=== PATIENT | female | born 1965 | race Two or more races ===

== ENCOUNTER 2024-01-16 08:48 | Outpatient (RCR) | payer MEDICAID, SELFPAY ==
[2024-01-15 16:10] LABS: Basophils # (Auto) 0.1 Thou/mm3 (0.0-0.2); Basophils % (Auto) 1 % (0-2.5); Eosinophils # (Auto) 0.3 Thou/mm3 (0.0-0.5); Eosinophils % (Auto) 2 % (0-10); Hematocrit 34.2 % (36.0-46.0); Hemoglobin 11.6 g/dL (12.0-16.0); Immature Granulocytes % (Auto) 1 % (0-0); Immature Granulocytes Auto 0.07 Thou/mm3 (0.00-0.00); Lymphocytes # (Auto) 2.3 Thou/mm3 (1.0-4.8); Lymphocytes % (Auto) 20 % (10-50); Mean Corpuscular HGB Conc 33.9 g/dl (31.0-37.0); Mean Corpuscular Hemoglobin 27.1 pg (25.0-35.0); Mean Corpuscular Volume 80 fL (80-100); Monocytes # (Auto) 0.8 Thou/mm3 (0.0-0.8); Monocytes % (Auto) 7 % (0-12); Neutrophils # (Auto) 8.4 Thou/mm3 (1.8-7.7); Neutrophils % (Auto) 70 % (37-80); Nucleated Red Blood Cell % 0 /100 WBC (0); Platelet Count 336 Thou/mm3 (140-440); RDW Standard Deviation 42.2 fL (36.4-46.3); Red Blood Count 4.28 Miln/mm3 (4.00-5.20)
[2024-01-15 16:17] LABS: Alanine Aminotransferase 89 U/L (10-49); Albumin, Serum 4.3 gm/dL (3.4-4.8); Albumin/Globulin Ratio 1.3 (1.2-2.2); Alkaline Phosphatase 201 U/L (46-116); Anion Gap 8 (7-16); Aspartate Amino Transferase 46 U/L (0-34); BUN/Creatinine Ratio 16 Ratio (12-20); Bilirubin,Total 0.3 mg/dL (0.3-1.2); Blood Urea Nitrogen 13 mg/dL (9-23); Calcium 8.2 mg/dL (8.3-10.6); Calcium (Corrected) 8.2 mg/dL (8.5-10.1); Carbon Dioxide 26.2 mMol/L (20.0-31.0); Chloride 104 mMol/L (98-107); Creatinine (Component) 0.8 mg/dL (0.6-1.3); Globulin 3.2 gm/dL (2.3-3.5); Glucose 104 mg/dL (74-106); Osmolality,Calculated 275 (275-295); Potassium 3.6 mMol/L (3.4-5.1); Sodium 138 mMol/L (136-145); Total Protein 7.5 gm/dL (5.7-8.2); eGFR > 60 See Note
[2024-01-15 16:33] LABS: Carcinoembryonic Antigen 2.1 ng/mL (0.0-5.0)
== END 2024-01-25 23:59 | disposition home or self-care (01) ==
LOC: SCTC 08:48
PROVIDERS: PCP Physician Assistant; Referring Provider Physician Assistant; Visit Provider Nurse Practitioner Family
DX: Z08 Encounter for follow-up examination after completed treatment for malignant neoplasm (principal); Z85.41 Personal history of malignant neoplasm of cervix uteri; I25.2 Old myocardial infarction; M85.88 Other specified disorders of bone density and structure, other site; Z90.710 Acquired absence of both cervix and uterus; Z79.83 Long term (current) use of bisphosphonates; I10 Essential (primary) hypertension
CPT/HCPCS: 36591; 80053; 82378; 85025; 86304; 99212; A4216; J1642; G0463

== ENCOUNTER → 2024-03-18 | Outpatient (CLI) | payer MEDICAID, SELFPAY ==
--- NOTE | 2024-03-18 13:15 | XR_ITS ---
Examination: Screening digital mammography, bilateral Computer aided detection 3-D breast Tomosynthesis, bilateral Date and time of exam: March 18, 2024 at 1242 hours Compared to mammograms dating to February 09, 2015 Indication: Screening Technique: Nonmagnified MLO, CC views of the breasts to been obtained, reconstructed from 3-D Tomosynthesis images. R2 computer aided detection program utilized for evaluation of suspicious masses and/or abnormal calcifications. 3-D Tomosynthesis images obtained. Findings: Scattered areas of fibroglandular density Benign calcifications. No interval suspicious masses Impression: BI-RADS category II: Benign Findings. Recommend 1 year follow-up mammogram.
== END | disposition home or self-care (01) ==
LOC: CDIM 12:34
PROVIDERS: PCP Nurse Practitioner Family; Referring Provider Nurse Practitioner Family; Visit Provider Nurse Practitioner Family
DX: Z12.31 Encounter for screening mammogram for malignant neoplasm of breast (principal); R92.323 Mammographic fibroglandular density, bilateral breasts; R92.1 Mammographic calcification found on diagnostic imaging of breast; C53.0 Malignant neoplasm of endocervix
CPT/HCPCS: 77063; 77067

== ENCOUNTER 2024-04-16 09:43 | Outpatient (RCR) | payer MEDICAID, SELFPAY ==
[2024-04-15 16:20] LABS: Basophils # (Auto) 0.1 Thou/mm3 (0.0-0.2); Basophils % (Auto) 1 % (0-2.5); Eosinophils # (Auto) 0.2 Thou/mm3 (0.0-0.5); Eosinophils % (Auto) 3 % (0-10); Hematocrit 34.7 % (36.0-46.0); Hemoglobin 11.8 g/dL (12.0-16.0); Immature Granulocytes % (Auto) 0 % (0-0); Immature Granulocytes Auto 0.01 Thou/mm3 (0.00-0.00); Lymphocytes # (Auto) 2.3 Thou/mm3 (1.0-4.8); Lymphocytes % (Auto) 27 % (10-50); Mean Corpuscular Hemoglobin 27.4 pg (25.0-35.0); Mean Corpuscular Volume 81 fL (80-100); Monocytes # (Auto) 0.7 Thou/mm3 (0.0-0.8); Monocytes % (Auto) 8 % (0-12); Neutrophils # (Auto) 5.4 Thou/mm3 (1.8-7.7); Neutrophils % (Auto) 63 % (37-80); Nucleated Red Blood Cell % 0 /100 WBC (0); Platelet Count 243 Thou/mm3 (140-440); RDW Standard Deviation 41.1 fL (36.4-46.3); White Blood Count 8.7 Thou/mm3 (3.6-11.0)
[2024-04-15 16:57] LABS: Alanine Aminotransferase 35 U/L (10-49); Albumin, Serum 4.2 gm/dL (3.4-4.8); Albumin/Globulin Ratio 1.4 (1.2-2.2); Alkaline Phosphatase 125 U/L (46-116); Anion Gap 11 (7-16); Aspartate Amino Transferase 37 U/L (0-34); BUN/Creatinine Ratio 15 Ratio (12-20); Bilirubin,Total 0.5 mg/dL (0.3-1.2); Blood Urea Nitrogen 12 mg/dL (9-23); Carbon Dioxide 25.5 mMol/L (20.0-31.0); Chloride 104 mMol/L (98-107); Creatinine (Component) 0.8 mg/dL (0.6-1.3); Glucose 132 mg/dL (74-106); Osmolality,Calculated 281 (275-295); Potassium 3.2 mMol/L (3.4-5.1); Sodium 140 mMol/L (136-145); Total Protein 7.2 gm/dL (5.7-8.2); eGFR > 60 See Note
[2024-04-15 17:13] LABS: Carcinoembryonic Antigen 1.2 ng/mL (0.0-5.0)
--- NOTE | 2024-04-16 10:35 | CTCFLWUP_ITS ---
Patient: AMRIK RICHARDSON : 1965 Page 2 of 2 FOLLOW UP NOTE DATE OF SERVICE: 04/16/2024 NAME: AMRIK RICHARDSON ACCOUNT: [id number] : 1965 AGE: 59 INTERVAL HISTORY: Denies per vagina or rectum bleeding. No new complaints. No abdominal distention or weight gain or weight loss. Patient do not follow with gynecology and her last cervical exam was less than a year ago. 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 Biopsy-proven left cervical metastatic disease. Myocardial infarction while on maintenance Avastin. Avastin discontinued. DATE OF DIAGNOSIS: 03/06/2013 STAGE/TNM: IIIB T1b1 N1 M0 TREATMENT HISTORY: Care?Plan Start?Date Cycle Day Intent CISplatin?40?mg/m*2?+?Radiation?Therapy?-?Primary,?Adj,?Rec 04/06/2013 1 7 Curative?(adjuvant) CISPLatin?25mg;?PACLItaxel?175;?AVAStin?7.5 05/22/2017 1 21 Definitive CISPLatin?50mg;?PACLItaxel?175;?AVAStin?15 05/27/2017 1 21 Definitive CISPLatin?50mg;?PACLItaxel?175;?AVAStin?15 08/01/2017 1 21 Definitive Bevacizumab?10?mg/kg?-?Met 11/21/2017 1 28 Maintenance HISTORY OF PRESENT ILLNESS: Ms. Richardson is here at [facility] cancer center. Patient is clinically doing well. Denies any concerns or complaints. Patient is taking Fosamax 35 mg daily and calcium, tolerating them well. Denies body aches, leg cramps. Denies any cough, chest pain, abdominal pain, fever or leg cramps. Denies weight loss. Denies any abnormal lumps/bumps. Denies any fevers or night sweats. She reports good energy levels and appetite. HISTORY: Tarah Richardson is a 59-year-old Mozambican-speaking female with following history. 09/03/2012: Excision of cervix which showed poorly differentiated adenocarcinoma with surgical margins being positive. 03/06/2013: Total abdominal hysterectomy and right and left pelvic wall lymph nodes resection. It was staged as a pT1b1, pN1 disease. 04/06/2013?06/26/2013: Patient received 6300 cGy radiation to the pelvis along with weekly cisplatin started on 04/06/2013 and completed on 06/24/2013. Patient received 7 weekly doses of cisplatin along with radiation 04/09/2013: CT scan of the abdomen and pelvis with and without contrast was obtained which showed a 3 mm noncalcified pulmonary nodule in the right lower lobe. Para-aortic lymph nodes measuring up to 8 mm as well as much larger lymph node masses in the internal iliac chains bilaterally as well as external iliac nodes. 02/19/2017: A repeat PET CT scan showed metastatic lymphadenopathy in the left neck as well as small coalescent lymph nodes in the right neck at the level of C3/4 with mildly increased metabolic activity. No other hypermetabolic areas were evident. 04/23/2017: CT-guided biopsy of the left carotid triangle lymph node?. 05/27/2017?07/11/2017: Patient was treated with 3 cycles of Taxol and cisplatin. 08/01/2017?09/12/2017: Patient received 3 cycles of cisplatin, Taxol and Avastin. 09/27/2017: PET CT scan was done. Is a negative study for any metastatic disease. 10/07/2017: Patient had CT scan of the neck chest abdomen pelvis with IV contrast. CT scan of the neck did not show any significant cervical lymphadenopathy. CT scan of the chest abdomen pelvis with negative studies also. Patient completed 6 cycles of cisplatin Taxol and Avastin regimen so far. Apparently she has complete radiological response. 11/21/2017: Patient was started on single agent Avastin as maintenance therapy 01/26/2019: Patient received a Avastin. 02/06/2019: Patient was diagnosed with non-ST elevated myocardial infarction. Angiogram showed 99% proximal left circumflex artery stenosis. Patient had stent placed with good results. 11/27/2019: PET CT scan?negative for metastatic disease. 12/09/2020: PET CT scan? 12/30/2020: CT scan of the chest with IV contrast? 02/27/2021: Mammograms, bilateral?BI-RADS Category 2: Benign findings. 02/28/2021: Right breast ultrasound?BI-RADS Category 1: Negative study. 07/08/2021: PET/CT scan?no interval metastatic disease. 08/16/2021: CT scan of the chest without contrast? 06/12/2022: CEA: 1.4 and CA-125: 7.0 12/12/2022: CEA 1.3 and CA?125: 13.0, hemoglobin 11.5, MCV 82, platelets 233,000, ANC 5.7 01/28/2023: Mammogram screening Impression: BI-RADS category 1: Negative findings (within normal) Recommend 1 year follow-up mammogram 04/11/2023: CEA 1.5, CA-125 19.0 05/03/2023: PET/CT 08/07/2023: DEXA 09/18/2023: CEA 1.3 CA 125 is 16.0 10/24/2023: PET/CT OTHER MEDICAL HISTORY/CONDITIONS: FAMILY HISTORY: ?Clone Family Hx? SOCIAL HISTORY: SOFTWARE APPLICATION TESTER HISTORY: MEDICATIONS: 1. aspirin - 81 mg 1 tab Daily 2. Citracal + D Slow Release - 600 mg-12.5 mcg (500 unit) 1 tab one tab po twice a day 3. levothyroxine - 100 mcg/mL 1 As directed 4. lisinopril - 40 mg 40 mg Daily 5. omeprazole - 20 mg 1 Capsule Daily?Palabra Meds? Medications Last Reconciled by Bree Garsia MA on 04/16/2024 ALLERGIES: No Known Drug Allergies REVIEW OF SYSTEMS: A complete 14-point review of systems was performed and is negative except as noted in interval history. PHYSICAL EXAMINATION: VITAL SIGNS: Temperature?97.4, B/P?133/82, Oxygen?Saturation?98% Weight?152?lbs PAIN: 0 - No pain ECOG Performance Status: 0 - Asymptomatic and fully active GENERAL APPEARANCE: Appears well, in no apparent distress, appropriately interactive. HEENT: Normocephalic, no temporal wasting, normal conjunctiva, no scleral icterus, normal hearing, lips without lesions, neck normal range of motion. CARDIOVASCULAR: Not assessed. PULMONARY: Normal respiratory effort, no respiratory distress or use of accessory muscles, speaking in full sentences, no tachypnea. EXTREMITIES: No pedal edema or cyanosis. SKIN: Normal skin appearance. NEUROLOGIC: Alert and oriented x4. PSHYCHIATRIC: Appropriate affect, mood normal, behavior normal, intact thought and speech. LABORATORY DATA: I have personally reviewed and interpreted each of the patient?s relevant lab tests, abnormal findings are below: Date 04/15/24 ??GLUCOSE,RANDOM?(mg/dL) 132?H ??BLOOD?UREA?NITROGEN?(mg/dL) 12 ??CREATININE?(mg/dL) 0.80 ??SODIUM?(mmol/L) 140 ??POTASSIUM?(mmol/L) 3.2?L ??CHLORIDE?(mmol/L) 104 ??CrCl?(CandG)?(ml/min) 78.79 ??AST/SGOT?(Unit/L) 37?H ??ALT/SGPT?(Unit/L) 35 ??ALKALINE?PHOSPHATASE?(Unit/L) 125?H ??BILIRUBIN,?TOTAL?(mg/dL) 0.5 ??PROTEIN?TOTAL?(gm/dl) 7.2 ??ALBUMIN,?SERUM?(gm/dl) 4.2 ??GLOBULIN?(gm/dl) 3.0 ??ALBUMIN/GLOBULIN?RATIO 1.4 ??CALCIUM,?SERUM?(mg/dL) 8.0?L ??CALCIUM?SERUM?(CORRECTED)?(mg/dL) 8.0?L ASSESSMENT/PLAN: P 16 positive, 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 Biopsy-proven left cervical metastatic disease. Myocardial infarction while on maintenance Avastin. Avastin discontinued.Ms. Richardson continues to remain asymptomatic without any complaints. PET CT scan done in June no interval metastatic disease as described above. CT scan of the chest without contrast showed stable pulmonary nodules. Patient had myocardial infarction as described above on 02/06/2019 due to 99% proximal left circumflex artery stenosis. Patient had stent placed. Avastin is known to cause blood clots as well as bleeding. Metastatic P 16+ cervical cancer with left-sided malignant cervical lymphadenopathy status post 6 cycles of cisplatin, Last Avastin was given on 01/26/2019. No evidence of recurrence PET CT scan on 10/24/2023 is negative CBC CMP CT scan chest abdomen and pelvis RETURN TO CLINIC: After scan in September BILLING AND COMPLIANCE: I reviewed external records from providers outside my specialty as summarized above. I spent a total of 50 minutes on this patient?s care on the day of their visit excluding time spent related to any billed procedures. This time includes time spent with the patient as well as time spent documenting in the medical record, reviewing patients records and tests, obtaining history, placing orders, communicating with other healthcare professionals, counseling the patient, family or caregiver, and/or care coordination for the diagnoses above. Electronically Signed by: Jassi Boyer MD T: 10:33 AM CC: PCP: Zehra Bolden Referring: Zehra Bolden This document was completed utilizing speech recognition software. Grammatical errors, random word insertions, pronoun errors, and incomplete sentences are an occasional consequence of this system due to software limitations, ambient noise, and hardware issues. Any formal questions or concerns about the content, text or information contained within the body of this dictation should be directly addressed to the provider for clarification.
== END 2024-04-24 23:59 | disposition home or self-care (01) ==
LOC: SCTC 09:43
PROVIDERS: PCP Nurse Practitioner Family; Referring Provider Nurse Practitioner Family; Visit Provider Internal Medicine Hematology & Oncology
DX: Z08 Encounter for follow-up examination after completed treatment for malignant neoplasm (principal); Z85.41 Personal history of malignant neoplasm of cervix uteri; R91.8 Other nonspecific abnormal finding of lung field; I25.2 Old myocardial infarction
CPT/HCPCS: 36591; 80053; 82378; 85025; 86304; 99213; A4216; J1642; G0463

== ENCOUNTER 2024-06-03 10:26 | Outpatient (AMB) | payer MEDICAID, SELFPAY ==
[2024-06-03 10:49] VITALS: BP 144/80; PULSE 84; RESP 16; TEMP 36.2; O2SAT 99; BMI 27.6
--- NOTE | 2024-06-03 10:49 | GYNCLNT_ITS ---
Vital Signs 06/03/24 10:49 Height 1.57 m Height Method Stated Weight 68.521 kg Weight Measurement Method Standing Scale BMI 27.6 BP 144/80 H Blood Pressure Source Automatic Cuff Blood Pressure Location Left Upper Arm Position Sitting Respiration 16 Pulse 84 Pulse Source Monitor Temp 97.2 F Temp Source Oral Pulse Oximetry (%) 99 Oxygen Delivery Method Room Air Allergies/Home Meds Allergies & Medications Allergies No Known Allergies Allergy (Verified 06/03/24 10:51) Medication Reconciliation levothyroxine 125 mcg tablet 62.5 mcg PO QDAY #0 tabs 04/21/13 [History Confirmed 06/03/24] lisinopril 20 mg tablet 40 mg PO QDAY 12/01/18 [History Confirmed 06/03/24] Intake Visit Data Collection New Patient or Established: Established Patient (seen at [facility] within 3 years) Reason for Visit:: Annual gynecological examination Seen by Clinical Staff ONLY (RN/MA): No Air Breaker Operator Required: Yes Air Breaker Operator's name/title: DERICK BROWN /WINDOW TINTER Do You Feel Safe at Home: Yes Authorities Contacted: N/A PCP or OBGYN visit in last 3 months: Yes Date of Last PCP or OBGYN visit: 04/16/24 Hx Now: No Are you currently on any form of Control: No Pain Present Currently: No Pain Scale Used: Torres-[place]/Numerical Pain scale:: 0 Smoking Status Smoking Status: Never smoker Ecommerce Marketing Specialist history Ecommerce Marketing Specialist History Monthly: No Menopausal: Yes Currently sexually active: No If not currently sexually active, have you ever been sexually active: Yes Questionnaires PHQ-9 PHQ-2 Over the last 2 weeks, how often have you been bothered by any of the following problems? 1. Little interest or pleasure in doing things: not at all 2. Feeling down, depressed, or hopeless: not at all Total score: 0 PHQ-9 3. Trouble falling or staying asleep, or sleeping too much: Not at all 4. Feeling tired or having little energy: Not at all 5. Poor appetite or overeating: Not at all 6. Feeling bad about yourself - or that you are a failure or have let yourself or your family down: Not at all 7. Trouble concentrating on things, such as reading the newspaper or watching television: Not at all 8. Moving or speaking so slowly that other people could have noticed? - Or the opposite - being so fidgety or restless that you have been moving around a lot more than usual: not at all 9. Thoughts that you would be better off or of hurting yourself in some way: Not at all Total score: 0 If you checked off any problems, how difficult have these problems made it for you to do your work, take care of things at home, or get along with other people?: not difficult at all Source: Developed by Drs. Pineda Moya, Tamra Shirley, Tom Espinosa and colleagues, with an educational yana from [employer]. Depression screen completed yes Social History Living Situation History Marital Status: Lives With: Family Housing: House Housing Other:: Has 4 girls Tobacco History Smoking Status: Never smoker Second Hand Smoke Exposure: No Alcohol History Alcohol Intake: Never Alcohol Intake Frequency: holidays/special occasions only Domestic Abuse History Do You Feel Safe at Home: Yes Past Medical History Past Medical History Have you ever been diagnosed with any of the following: Neurological Problems Seizures: No Migraine: No Cardiology Problems Cardiac Arrhythmia: No Heart Murmur: No Hypertension: Yes (On lisinopril) Respiratory Problems Asthma: No Pulmonary Embolism: No Stomache/Intestinal Problems Gall Bladder Disease: Yes (Removal 2013) Colorectal Cancer: No Irritable Bowel: No Obesity: No Genital/Urinary Problems Renal Disease: No Reproductive Problems Breast Cancer: No Previous Pregnancies: Yes (Since vaginal delivery x 3 x 1 with a tubal ligation) Musculoskeletal Problems Arthritis: No Rheumatoid Arthritis: No Fibromyalgia: No Endocrine Problems Diabetes Mellitus Type 2: No Hyperthyroidism: Yes Hypothyroidism: Yes Blood Problems Anemia: No Psychologic Problems Depression: Yes Anxiety: Yes Other Problems Hospitalization: Yes (For , vaginal deliveries, hysterectomy.) Blood Transfusions: No Chemotherapy: Yes (For uterine or cervical cancer ) Radiation Therapy: Yes (For uterine or cervical cancer) MRSA: No Cancer: Yes (Uterine or cervical cancer) Cervical Cancer: Yes Surgical History Cholecystectomy: Yes Hysterectomy: Yes Thyroidectomy: Yes Additional Surgical History: Patient had her gallbladder removed, her thyroid re moved. She has a history of vaginal delivery x 3 and x 1 she states she had her tubes removed with her . She had a hysterectomy in 2014 in [place] for either cervical or uterine cancer and then something about a lymph node in 2018 that was positive so she underwent chemo and radiation twice. I have no records available. Patient is Maltese-speaking only and the entire history and physical examination is translated through my medical clerk Derick. The patient states she does continue to follow with her cancer doctors. History of Present Illness HPI Narrative Patient is a very pleasant 59-year-old -0-0-4 presents for an annual exam. She states she has a very short vagina and can not have intercourse secondary to radiation. She has a history of some type of cervical or uterine cancer status post radiation and chemo in the past. I have no records. I am unsure whether she has her ovaries in place or not. She gets regular mammograms and does follow-up with her gynecological cancer team in [place]. Review of Systems Constitutional Comments: No weight loss. No nausea, no vomiting. Patient appears younger than her stated age and is quite pleasant. She cannot have intercourse secondary to a foreshortened vagina. She has been menopausal for many years. Exam General General Appearance: alert, in no apparent distress, comfortable, cooperative, healthy appearing and well groomed Exp Chest Breast: bilateral: other (Normal breast exam bilaterally) External exam: Present normal external exam Speculum exam: Present other (Vagina extremely foreshortened and atrophic) Bimanual exam: Present other (Pelvic exam performed with one finger reveals cuff intact, uterus and cx surgically absent. I cannot palpate ovaries. No adnexal masses or tenderness.) Office Procedures OB Clinic LOC & Office Proc's Nursing/Assessment Patient Status: Established Patient OB Clinic Nursing Assessment: BP Monitoring, Medication Reconciliation, Update PMH in EMR and Vital Signs OB Clinic Coordination of Care: Consent,records obtained, informed consent, Education Simp Pt/Fam, Lab and Imaging orders and Staff clarify orders Miscellaneous Interventions: Breast Exam and Pelvic/Pap Smear Set up Established Patient Charge Established Patient Point Assignment: 140 Established Patient Point Charge: EP Level 4 (120-155) In Clinic Procedures Pap Smear: Yes CLERICAL ADJUDICATOR: Papsmear Pap Smear Procedure Chaparone in room during procedure?: Yes Pre-op diagnosis general: Annual gynecologic exam, history of cervical or uterine CA and XRT Post-op diagnosis procedure note: Same Procedure Notes:: Pap with cotesting to HPV performed. Papsmear completed: yes
== END 2024-06-03 11:31 | disposition home or self-care (01) ==
LOC: HODSOBC 10:26
PROVIDERS: PCP Nurse Practitioner Family; Referring Provider Nurse Practitioner Family; Supervising Provider Obstetrics & Gynecology; Visit Provider Obstetrics & Gynecology
DX: Z01.419 Encounter for gynecological examination (general) (routine) without abnormal findings (principal); Z85.40 Personal history of malignant neoplasm of unspecified female genital organ; Z92.3 Personal history of irradiation; Z92.21 Personal history of antineoplastic chemotherapy; Z90.710 Acquired absence of both cervix and uterus; Z90.79 Acquired absence of other genital organ(s); Z90.49 Acquired absence of other specified parts of digestive tract; Z90.89 Acquired absence of other organs
CPT/HCPCS: 99214; Q0091; G0463

== ENCOUNTER 2024-10-13 08:37 | Outpatient (RCR) | payer MEDICAID, SELFPAY ==
[2024-10-13 09:43] LABS: Basophils # (Auto) 0.1 Thou/mm3 (0.0-0.2); Basophils % (Auto) 1 % (0-2.5); Eosinophils # (Auto) 0.2 Thou/mm3 (0.0-0.5); Eosinophils % (Auto) 3 % (0-10); Hematocrit 35.4 % (36.0-46.0); Hemoglobin 11.6 g/dL (12.0-16.0); Immature Granulocytes Auto 0.01 Thou/mm3 (0.00-0.00); Lymphocytes # (Auto) 1.9 Thou/mm3 (1.0-4.8); Lymphocytes % (Auto) 25 % (10-50); Mean Corpuscular HGB Conc 32.8 g/dl (31.0-37.0); Mean Corpuscular Hemoglobin 27.8 pg (25.0-35.0); Mean Corpuscular Volume 85 fL (80-100); Monocytes # (Auto) 0.6 Thou/mm3 (0.0-0.8); Monocytes % (Auto) 8 % (0-12); Neutrophils # (Auto) 4.9 Thou/mm3 (1.8-7.7); Neutrophils % (Auto) 64 % (37-80); Nucleated Red Blood Cell # 0.00 Thou/mm3 (0.00-0.00); Nucleated Red Blood Cell % 0 /100 WBC (0); Platelet Count 198 Thou/mm3 (140-440); RDW Standard Deviation 43.9 fL (36.4-46.3); Red Blood Count 4.18 Miln/mm3 (4.00-5.20); White Blood Count 7.8 Thou/mm3 (3.6-11.0)
[2024-10-13 10:03] LABS: Alanine Aminotransferase 55 U/L (10-49); Albumin, Serum 4.0 gm/dL (3.4-4.8); Albumin/Globulin Ratio 1.5 (1.2-2.2); Alkaline Phosphatase 129 U/L (46-116); Anion Gap 11 (7-16); Aspartate Amino Transferase 54 U/L (0-34); BUN/Creatinine Ratio 26 Ratio (12-20); Bilirubin,Total 0.5 mg/dL (0.3-1.2); Blood Urea Nitrogen 18 mg/dL (9-23); Calcium 7.9 mg/dL (8.3-10.6); Calcium (Corrected) 7.9 mg/dL (8.5-10.1); Carbon Dioxide 27.3 mMol/L (20.0-31.0); Chloride 104 mMol/L (98-107); Creatinine (Component) 0.7 mg/dL (0.6-1.3); Globulin 2.6 gm/dL (2.3-3.5); Glucose 101 mg/dL (74-106); Osmolality,Calculated 285 (275-295); Potassium 3.4 mMol/L (3.4-5.1); Sodium 142 mMol/L (136-145); Total Protein 6.6 gm/dL (5.7-8.2); eGFR > 60 See Note
[2024-10-13 10:18] LABS: CA 125 12.0 U/mL (<30.2); Carcinoembryonic Antigen 1.7 ng/mL (0.0-5.0)
== END 2024-10-25 23:59 | disposition home or self-care (01) ==
LOC: SCTC 08:37
PROVIDERS: PCP Nurse Practitioner Family; Referring Provider Nurse Practitioner Family; Visit Provider Internal Medicine Hematology & Oncology
DX: Z08 Encounter for follow-up examination after completed treatment for malignant neoplasm (principal); Z85.41 Personal history of malignant neoplasm of cervix uteri; I25.2 Old myocardial infarction; R91.8 Other nonspecific abnormal finding of lung field
CPT/HCPCS: 36591; 80053; 82378; 85025; 86304; A4216; J1642

== ENCOUNTER → 2024-10-29 | Outpatient (CLI) | payer MEDICAID, SELFPAY ==
--- NOTE | 2024-10-29 10:30 | XR_ITS ---
Examination: CT chest with intravenous contrast CT abdomen with intravenous contrast CT pelvis with intravenous contrast 2-D coronal and sagittal reconstructions Time of exam: October 29, 2024 1037 hours, comparison PET/CT scan October 24, 2023 INDICATIONS: Diagnosis malignant neoplasm cervix 2014, restaging CTDI: vol (mGy) : 14.8 DLP: (mGycm): 551 Technique: Multiple axial images of the chest, abdomen and pelvis with intravenous contrast, 3.0 mm slice thickness. Images obtained post intravenous injection Isovue 370 60 cc. 2-D sagittal and coronal reconstructions. Low dose protocols were performed. One or more of the following dose reduction techniques were used; automated exposure control, adjustment of the mA and/or KV according to patient size, use of iterative reconstruction technique. Findings: No thoracic aortic aneurysmal dilatation No pulmonary artery emboli. No paratracheal tracheobronchial or bronchopulmonary adenopathy 5 mm pulmonary nodule right lower lobe, image 227, visualized in retrospect on the CT chest of the PET/CT scan October 24, 2023 No new pulmonary nodules No pneumonia or pulmonary edema No interval liver or splenic lesions Absent gallbladder No common bile duct stones No pancreatic mass No abdominal or pelvic lymphadenopathy Normal adrenal glands No hydronephrosis Normal appendix No bowel obstruction Bladder intact Significant osteopenia Moderate disc narrowing L5-S1 IMPRESSION: No interval metastatic disease
== END | disposition home or self-care (01) ==
PROVIDERS: PCP Nurse Practitioner Family; Referring Provider Internal Medicine Hematology & Oncology; Visit Provider Internal Medicine Hematology & Oncology
DX: C53.0 Malignant neoplasm of endocervix (principal)
CPT/HCPCS: 71260; 74177; A4649; Q9967

== ENCOUNTER 2024-11-10 15:38 | Outpatient (RCR) | payer MEDICAID, SELFPAY ==
--- NOTE | 2024-11-10 16:00 | CTCFLWUP_ITS ---
Patient: AMRIK RICHARDSON : 1965 Page 5 of 7 FOLLOW UP NOTE DATE OF SERVICE: 11/10/2024 NAME: AMRIK RICHARDSON ACCOUNT: [id number] : 1965 AGE: 59 INTERVAL HISTORY: Patient is doing well with no new complaints. Denies any abdominal distention or weight gain weight loss or appetite changes bleeding per her rectum or vagina. 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 Biopsy-proven left cervical metastatic disease. Myocardial infarction while on maintenance Avastin. Avastin discontinued. DATE OF DIAGNOSIS: 03/06/2013 STAGE/TNM: IIIB T1b1 N1 M0 TREATMENT HISTORY: Care?Plan Start?Date Cycle Day Intent CISplatin?40?mg/m*2?+?Radiation?Therapy?-?Primary,?Adj,?Rec 04/06/2013 1 7 Curative?(adjuvant) CISPLatin?25mg;?PACLItaxel?175;?AVAStin?7.5 05/22/2017 1 21 Definitive CISPLatin?50mg;?PACLItaxel?175;?AVAStin?15 05/27/2017 1 21 Definitive CISPLatin?50mg;?PACLItaxel?175;?AVAStin?15 08/01/2017 1 21 Definitive Bevacizumab?10?mg/kg?-?Met 11/21/2017 1 28 Maintenance HISTORY OF PRESENT ILLNESS: Ms. Richardson is here at [facility]. Patient is clinically doing well. Denies any concerns or complaints. Patient is taking Fosamax 35 mg daily and calcium, tolerating them well. Denies body aches, leg cramps. Denies any cough, chest pain, abdominal pain, fever or leg cramps. Denies weight loss. Denies any abnormal lumps/bumps. Denies any fevers or night sweats. She reports good energy levels and appetite. HISTORY: Tarah Richardson is a 59-year-old Iranian-speaking female with following history. 09/03/2012: Excision of cervix which showed poorly differentiated adenocarcinoma with surgical margins being positive. 03/06/2013: Total abdominal hysterectomy and right and left pelvic wall lymph nodes resection. It was staged as a pT1b1, pN1 disease. 04/06/2013?06/26/2013: Patient received 6300 cGy radiation to the pelvis along with weekly cisplatin started on 04/06/2013 and completed on 06/24/2013. Patient received 7 weekly doses of cisplatin along with radiation 04/09/2013: CT scan of the abdomen and pelvis with and without contrast was obtained which showed a 3 mm noncalcified pulmonary nodule in the right lower lobe. Para-aortic lymph nodes measuring up to 8 mm as well as much larger lymph node masses in the internal iliac chains bilaterally as well as external iliac nodes. 02/19/2017: A repeat PET CT scan showed metastatic lymphadenopathy in the left neck as well as small coalescent lymph nodes in the right neck at the level of C3/4 with mildly increased metabolic activity. No other hypermetabolic areas were evident. 04/23/2017: CT-guided biopsy of the left carotid triangle lymph node?. 05/27/2017?07/11/2017: Patient was treated with 3 cycles of Taxol and cisplatin. 08/01/2017?09/12/2017: Patient received 3 cycles of cisplatin, Taxol and Avastin. 09/27/2017: PET CT scan was done. Is a negative study for any metastatic disease. 10/07/2017: Patient had CT scan of the neck chest abdomen pelvis with IV contrast. CT scan of the neck did not show any significant cervical lymphadenopathy. CT scan of the chest abdomen pelvis with negative studies also. Patient completed 6 cycles of cisplatin Taxol and Avastin regimen so far. Apparently she has complete radiological response. 11/21/2017: Patient was started on single agent Avastin as maintenance therapy 01/26/2019: Patient received a Avastin. 02/06/2019: Patient was diagnosed with non-ST elevated myocardial infarction. Angiogram showed 99% proximal left circumflex artery stenosis. Patient had stent placed with good results. 11/27/2019: PET CT scan?negative for metastatic disease. 12/09/2020: PET CT scan? 12/30/2020: CT scan of the chest with IV contrast? 02/27/2021: Mammograms, bilateral?BI-RADS Category 2: Benign findings. 02/28/2021: Right breast ultrasound?BI-RADS Category 1: Negative study. 07/08/2021: PET/CT scan?no interval metastatic disease. 08/16/2021: CT scan of the chest without contrast? 06/12/2022: CEA: 1.4 and CA-125: 7.0 12/12/2022: CEA 1.3 and CA?125: 13.0, hemoglobin 11.5, MCV 82, platelets 233,000, ANC 5.7 01/28/2023: Mammogram screening Impression: BI-RADS category 1: Negative findings (within normal) Recommend 1 year follow-up mammogram 04/11/2023: CEA 1.5, CA-125 19.0 05/03/2023: PET/CT 08/07/2023: DEXA 09/18/2023: CEA 1.3 CA 125 is 16.0 10/24/2023: PET/CT OTHER MEDICAL HISTORY/CONDITIONS: FAMILY HISTORY: SOCIAL HISTORY: SOCIAL MEDIA JOB TITLES HISTORY: MEDICATIONS: 1. aspirin - 81 mg 1 tab Daily 2. Citracal + D Slow Release - 600 mg-12.5 mcg (500 unit) 1 tab one tab po twice a day 3. levothyroxine - 100 mcg/mL 1 As directed 4. lisinopril - 40 mg 40 mg Daily 5. omeprazole - 20 mg 1 Capsule Daily Medications Last Reconciled by Bree Garsia MA on 04/16/2024 ALLERGIES: No Known Drug Allergies REVIEW OF SYSTEMS: A complete 14-point review of systems was performed and is negative except as noted in interval history. PHYSICAL EXAMINATION: VITAL SIGNS: GENERAL APPEARANCE: Appears well, in no apparent distress, appropriately interactive. HEENT: Normocephalic, no temporal wasting, normal conjunctiva, no scleral icterus, normal hearing, lips without lesions, neck normal range of motion. CARDIOVASCULAR: Not assessed. PULMONARY: Normal respiratory effort, no respiratory distress or use of accessory muscles, speaking in full sentences, no tachypnea. EXTREMITIES: No pedal edema or cyanosis. SKIN: Normal skin appearance. NEUROLOGIC: Alert and oriented x4. PSHYCHIATRIC: Appropriate affect, mood normal, behavior normal, intact thought and speech. LABORATORY DATA: I have personally reviewed and interpreted each of the patient?s relevant lab tests, abnormal findings are below: Date 10/13/24 ??WHITE?BLOOD?COUNT?(Thou/mm3) 7.8 ??RED?BLOOD?COUNT?(Miln/mm3) 4.18 ??HEMOGLOBIN?(gm/dl) 11.6?L ??HEMATOCRIT?(%) 35.4?L ??PLATELET?COUNT?(Thou/mm3) 198 ??NEUTROPHILS?%,?AUTO?(%) 64 ??LYMPH?%,?AUTO?(%) 25 ??NEUTROPHILS,?AUTO?(Thou/mm3) 4.9 ??GLUCOSE,RANDOM?(mg/dL) 101 ??BLOOD?UREA?NITROGEN?(mg/dL) 18 ??CREATININE?(mg/dL) 0.70 ??SODIUM?(mmol/L) 142 ??POTASSIUM?(mmol/L) 3.4 ??CHLORIDE?(mmol/L) 104 ??CrCl?(CandG)?(ml/min) 91.86 ??AST/SGOT?(Unit/L) 54?H ??ALT/SGPT?(Unit/L) 55?H ??ALKALINE?PHOSPHATASE?(Unit/L) 129?H ??BILIRUBIN,?TOTAL?(mg/dL) 0.5 ??PROTEIN?TOTAL?(gm/dl) 6.6 ??ALBUMIN,?SERUM?(gm/dl) 4.0 ??GLOBULIN?(gm/dl) 2.6 ??ALBUMIN/GLOBULIN?RATIO 1.5 ??CALCIUM,?SERUM?(mg/dL) 7.9?L ??CALCIUM?SERUM?(CORRECTED)?(mg/dL) 7.9?L ??CEA?(O*)?(ng/ml) 1.7 ??CA?125?(O*)?(Unit/mL) 12.0 ASSESSMENT/PLAN: P 16 positive, 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 Biopsy-proven left cervical metastatic disease. Myocardial infarction while on maintenance Avastin. Avastin discontinued.Ms. Richardson continues to remain asymptomatic without any complaints. PET CT scan on 10/24/[address] scan on 10/29/2024 reviewed with Ms. Richardson and is negative Return to clinic in [address] scan in October 2025 Ordered labs and naterra for closer monitoring Advised to closely monitor with table games floor supervisor Patient is cancer free for more than 6 years ORDERS: Order # Description [id number] Comprehensive Metabolic Panel - 12 + CBC with Auto Diff + CA 125 + [id number] Follow Up [id number] Scan + Abdomen and Pelvis + Chest + With W/O Contrast RETURN TO CLINIC: I reviewed the diagnosis, prognosis, and recommended treatment/procedure options with the patient (and/or their legal industrial sales representative), including the potential benefits, risks, side effects and alternative therapies. We also discussed the option of no treatment and the possibility of clinical trial participation, if applicable. All questions were addressed, and they demonstrated understanding. They provided informed consent to proceed with the proposed plan of care. BILLING AND COMPLIANCE: I reviewed external records from providers outside my specialty as summarized above. I spent a total of 50 minutes on this patient?s care on the day of their visit excluding time spent related to any billed procedures. This time includes time spent with the patient as well as time spent documenting in the medical record, reviewing patients records and tests, obtaining history, placing orders, communicating with other healthcare professionals, counseling the patient, family or caregiver, and/or care coordination for the diagnoses above. Electronically Signed by: Jassi Boyer MD T: 3:58 PM CC: PCP: Zehra Bolden Referring: Zehra Bolden This document was completed utilizing speech recognition software. Grammatical errors, random word insertions, pronoun errors, and incomplete sentences are an occasional consequence of this system due to software limitations, ambient noise, and hardware issues. Any formal questions or concerns about the content, text or information contained within the body of this dictation should be directly addressed to the provider for clarification.
== END 2024-11-24 23:59 | disposition home or self-care (01) ==
LOC: SCTC 15:38
PROVIDERS: PCP Nurse Practitioner Family; Referring Provider Nurse Practitioner Family; Visit Provider Internal Medicine Hematology & Oncology
DX: Z08 Encounter for follow-up examination after completed treatment for malignant neoplasm (principal); Z85.42 Personal history of malignant neoplasm of other parts of uterus; Z90.710 Acquired absence of both cervix and uterus; Z92.3 Personal history of irradiation; Z92.21 Personal history of antineoplastic chemotherapy
CPT/HCPCS: 99213; G0463